=== PATIENT | male | born 1945 | race Caucasian/White ===

== ENCOUNTER 2016-11-25 08:37 | Emergency (ER) | payer OTHER ==
[2016-11-25 08:44] VITALS: TEMP 98.1
[2016-11-25] MEDS ORDERED: fentaNYL 100 MCG/2 ML INJ ONE (08:59)
[2016-11-25] MEDS ORDERED: ONDANSETRON 4 MG/2 ML VIAL IVP ONE (08:59)
[2016-11-25] MEDS ORDERED: fentaNYL 100 MCG/2 ML INJ IVP ONE (08:59)
[2016-11-25 09:03] LABS: % IMMATURE GRANULYOCYTES 0.4 % (0.0-1.1); ABSOLUTE IMMATURE GRANULOCYTES 0.03 10^3/uL (0.00-0.10); ADD DIFF? NO; ADD MORPH? NO; ADD SCAN? NO; ATYPICAL LYMPHOCYTE FLAG 10 (0-99); FRAGMENT RBC FLAG 0 (0-99); HEMATOCRIT 47.2 % (40.0-51.0); HEMOGLOBIN 16.4 g/dL (13.7-17.5); LEFT SHIFT FLG 0 (0-99); LIPEMIA HEMOLYSIS FLAG 90 (0-99); MEAN CELL HEMOGLOBIN CONCENTR. 34.7 g/dL (32.4-36.7); MEAN CELL VOLUME 97.9 fL (81.5-99.8); MEAN PLATELET VOLUME 9.1 fL (8.7-11.7); PLATELET CLUMPS FLAG 0 (0-99); PLATELET COUNT 209 10^3/uL (150-400); RED BLOOD CELL COUNT 4.82 10^6/uL (4.40-6.38); RED CELL DISTRIBUTION WIDTH 12.4 % (11.5-15.2)
--- NOTE | 2016-11-25 09:07 | EDPHY ---
H & P Time Seen by Provider: 11/25/16 08:44 HPI/ROS: CHIEF COMPLAINT: Flank pain HISTORY OF PRESENT ILLNESS: 71-year-old male presents to the emergency department with left flank pain that began early yesterday morning. He states that the pain when it initially started with severe and then it completely resolved. He states that the pain came back again early this morning. He also has some mild left-sided abdominal pain. He has no chest pain or difficulty breathing. No fevers or chills. He has never had pain like this in the past. The pain is independent of movement. No reported trauma. No history of diverticula or diverticulitis. He did have a recent colonoscopy. He is urinating normally. Denies dysuria, urgency or frequency with urination. No hematuria. REVIEW OF SYSTEMS: Constitutional: No fever, no chills. Eyes: No double or blurry vision. ENT: No sore throat. Respiratory: No cough, no shortness of breath. Cardiac: No chest pain. Gastrointestinal: Left-sided abdominal pain. No vomiting or diarrhea. Genitourinary: No dysuria. Musculoskeletal: Left flank pain as above. No neck pain. Skin: No rashes. Neurological: No headache. Past Medical/Surgical History: Hyperlipidemia, hypothyroidism, erectile dysfunction, appendectomy Social History: , retired physician Smoking Status: Never smoked Physical Exam: General Appearance: Alert, mild distress. Temperature 36.7degrees. Eyes: Pupils equal and round. Extraocular motions are all intact. ENT: Mouth: Mucous membranes moist. Respiratory: No wheezing, rhonchi, or rales, lungs are clear to auscultation. Cardiovascular: Regular rate and rhythm. Gastrointestinal: Abdomen is soft. He does have tenderness with palpation in the left upper quadrant. There is no rebound, guarding or masses noted. He has positive CVA tenderness on the left, none on the right. Neurological: Alert and oriented x 3, cranial nerves II through XII grossly intact Skin: Warm and dry, no rashes. Musculoskeletal: Nontender to palpate along the cervical, thoracic or lumbar spine. Neck is supple. Extremities: Full range of motion and no peripheral edema. Psychiatric: Patient is oriented X 3, there is no agitation. Constitutional: Initial Vital Signs Temperature (C) 36.7 C 11/25/16 08:40 Heart Rate 69 11/25/16 08:40 Respiratory Rate 22 H 11/25/16 08:40 Blood Pressure 162/82 H 11/25/16 08:40 O2 Sat (%) 97 11/25/16 08:40 O2 Delivery Mode Room Air Allergies/Adverse Reactions: No Known Allergies Allergy (Unverified 11/25/16 08:42) Home Medications: Medication Instructions Recorded Cialis 11/25/16 Rosuvastatin Calcium 11/25/16 Synthroid 11/25/16 Tamsulosin HCl [Flomax] 0.4 mg PO DAILY #10 cap 11/25/16 oxyCODONE/APAP 5/325 [Percocet 1 - 2 tab PO Q4-6PRN PRN #15 tab 11/25/16 5/325] Medical Decision Making - Diagnostics Imaging Results: Imaging Impressions Abdomen/Pelvis CT 11/25/16 09:05 Impression: 1. Moderate left hydronephrosis secondary to 5 mm proximal left ureteral calculus. 2. Bilateral nephrolithiasis. 3. Sigmoid diverticulosis. 4. Normal caliber atherosclerotic aorta. Attention: This CT examination is specifically designed to evaluate patients who are clinically suspected of having acute obstructive uropathy. This examination does not use radiographic contrast, and as such, provides only a limited evaluation of the abdomen, pelvis and retroperitoneum. If there is further clinical suspicion for pathological conditions other than obstructive uropathy, a complete CT evaluation of the abdomen and pelvis utilizing intravenous, oral, and rectal contrast should be considered. Findings discussed with Emergency Department, Stephany Castano, on 11/25/2016 at 10:22 a.m. Imaging: Discussed imaging studies w/ shoe dresser Radiologist ED Course/Re-evaluation: 71-year-old male presents with left flank pain. The patient was able to provide a urine specimen and the urine dip in the emergency department revealed large blood. I explained to the patient that I was concerned about possible kidney stone. Noncontrast CT scan of the abdomen and pelvis has been ordered. Laboratory studies are pending. Patient was given 50 mcg of fentanyl IV and 4 mg of Zofran IV. The patient was feeling better. CT imaging reveals 5 mm left ureteral calculi with moderate left-sided hydronephrosis. The patient was given 30 mg of Toradol IV and 0.4 mg of Flomax p. o.. Patient was feeling comfortable and felt comfortable being discharged home. I spoke with the on-call urologist, Dr. Ayaz oswald who will see this patient as an outpatient. He agreed with continued Flomax and urine strainer. Patient was advised to return to the emergency department if he developed fever , difficulty urinating, vomiting, increasing or recurring pain, or if he felt worse in any way. Patient verbalized understanding and agreed. Differential Diagnosis: Including but not limited to kidney stone, diverticulitis, bowel obstruction, urinary tract infection, pyelonephritis - Data Points Laboratory Results: Laboratory Results 11/25/16 08:55 11/25/16 08:55 11/25/16 11/25/16 11/25/16 08:55 08:55 08:55 WBC 6.89 10^3/uL 10^3/uL (3.80-9.50) RBC 4.82 10^6/uL 10^6/uL (4.40-6.38) Hgb 16.4 g/dL g/dL (13.7-17.5) Hct 47.2 % % (40.0-51.0) MCV 97.9 fL fL (81.5-99.8) MCH 34.0 pg pg (27.9-34.1) MCHC 34.7 g/dL g/dL (32.4-36.7) RDW 12.4 % % (11.5-15.2) Plt Count 209 10^3/uL 10^3/uL (150-400) MPV 9.1 fL fL (8.7-11.7) Neut % (Auto) 51.8 % % (39.3-74.2) Lymph % (Auto) 36.0 % % (15.0-45.0) [place] % (Auto) 9.1 % % (4.5-13.0) Eos % (Auto) 2.0 % % (0.6-7.6) Baso % (Auto) 0.7 % % (0.3-1.7) Nucleat RBC Rel Count 0.0 % % (0.0-0.2) Absolute Neuts (auto) 3.56 10^3/uL 10^3/uL (1.70-6.50) Absolute Lymphs (auto) 2.48 10^3/uL 10^3/uL (1.00-3.00) Absolute Monos (auto) 0.63 10^3/uL 10^3/uL (0.30-0.80) Absolute Eos (auto) 0.14 10^3/uL 10^3/uL (0.03-0.40) Absolute Basos (auto) 0.05 10^3/uL 10^3/uL (0.02-0.10) Absolute Nucleated RBC 0.00 10^3/uL 10^3/uL (0-0.01) Immature Gran % 0.4 % % (0.0-1.1) Immature Gran # 0.03 10^3/uL 10^3/uL (0.00-0.10) Sodium 141 mEq/L mEq/L (134-144) Potassium 3.6 mEq/L mEq/L (3.5-5.2) Chloride 101 mEq/L mEq/L (97-110) Carbon Dioxide 24 mEq/l mEq/l (22-31) Anion Gap 16 mEq/L mEq/L (8-16) BUN 16 mg/dL mg/dL (7-23) Creatinine 1.1 mg/dL mg/dL (0.7-1.3) Estimated GFR > 60 Glucose 130 mg/dL H mg/dL (70-100) Calcium 10.3 mg/dL mg/dL (8.5-10.4) Urine Color YELLOW Urine Appearance HAZY Urine pH 7.0 (5.0-7.5) Ur Specific [place] 1.019 (1.002-1.030) Urine Protein NEGATIVE (NEGATIVE) Urine Ketones TRACE H (NEGATIVE) Urine Blood 2+ H (NEGATIVE) Urine Nitrate NEGATIVE (NEGATIVE) Urine Bilirubin NEGATIVE (NEGATIVE) Urine Urobilinogen NEGATIVE EU EU (0.2-1.0) Ur Leukocyte Esterase NEGATIVE (NEGATIVE) Urine RBC 50-182 /hpf H /hpf (0-3) Urine WBC 10-15 /hpf H /hpf (0-3) Ur Epithelial Cells NONE SEEN /lpf /lpf (NONE-1+) Urine Mucus TRACE /lpf /lpf (NONE-1+) Urine Glucose NEGATIVE (NEGATIVE) Medications Given: Discontinued Medications Fentanyl (Sublimaze) 50 mcg IVP EDNOW ONE Stop: 11/25/16 09:00 Last Admin: 11/25/16 09:06 Dose: 50 mcg Ketorolac Tromethamine (Toradol) 30 mg IVP EDNOW ONE Stop: 11/25/16 10:23 Last Admin: 11/25/16 10:47 Dose: 30 mg Ondansetron HCl (Zofran) 4 mg IVP EDNOW ONE Stop: 11/25/16 09:00 Last Admin: 11/25/16 09:17 Dose: Not Given Tamsulosin HCl (Flomax) 0.4 mg PO EDNOW ONE Stop: 11/25/16 10:23 Last Admin: 11/25/16 10:48 Dose: 0.4 mg Departure - Departure Disposition: Home, Routine, Self-Care Clinical Impression: Kidney stone on left side Condition: Good Instructions: Kidney Stones (ED) Additional Instructions: Strain urine. Return to the emergency department if you develop recurring flank pain, vomiting, fever, difficulty urinating, or if you feel worse in any way. Referrals: Ayaz Mooney MD [Medical Doctor] - 1-2 days without fail (The urologist on-call) Prescriptions: oxyCODONE/APAP 5/325 [Percocet 5/325] 1 - 2 tab PO Q4-6PRN PRN #15 tab PRN Reason: For Moderate To Severe Pain Tamsulosin HCl [Flomax] 0.4 mg PO DAILY #10 cap
[2016-11-25 09:11] LABS: COLOR YELLOW; LEUKOCYTE ESTERASE,URINE NEGATIVE (NEGATIVE); NITRITE,URINE NEGATIVE (NEGATIVE)
[2016-11-25 09:13] LABS: MUCUS TRACE /lpf (NONE-1+); RBC,URINE 50-182 /hpf (0-3)
[2016-11-25 09:20] LABS: ANION GAP 16 mEq/L (8-16); CALCIUM 10.3 mg/dL (8.5-10.4); CARBON DIOXIDE 24 mEq/l (22-31); CHLORIDE 101 mEq/L (97-110); CREATININE 1.1 mg/dL (0.7-1.3); GLOMERULAR FILTRATION RATE > 60; GLUCOSE 130 mg/dL (70-100); POTASSIUM 3.6 mEq/L (3.5-5.2); SODIUM 141 mEq/L (134-144)
[2016-11-25] MEDS ORDERED: TAMSULOSIN HCL 0.4 MG CAP PO ONE (10:22)
[2016-11-25] MEDS ORDERED: KETOROLAC 30 MG/1 ML SDV IVP ONE (10:22)
[2016-11-25 11:17] VITALS: BP 120/71; PULSE 59; RESP 16; O2SAT 97
== END 2016-11-25 11:15 | disposition home or self-care (01) ==
DX: N20.0 Calculus of kidney (principal); Z90.89 Acquired absence of other organs
CPT/HCPCS: 74176; 96374; 96375; 99285; J1885; J3010

== ENCOUNTER → 2016-12-29 | Outpatient (CLI) | payer OTHER | LOC: FIMAGING 12:59 | PROVIDERS: ATTEND Urology | DX: N20.2 Calculus of kidney with calculus of ureter (principal) ==

== ENCOUNTER → 2017-03-15 | Outpatient (CLI) | payer OTHER | LOC: FIMAGING 12:24 | PROVIDERS: ATTEND Urology | DX: N20.0 Calculus of kidney (principal) | CPT/HCPCS: G0103; G0472 ==